=== PATIENT | female | born 1990 | race Caucasian/White ===

== ENCOUNTER 2018-01-04 19:38 | Inpatient (IN) | payer OTHER ==
[2018-01-04] VITALS (36 sets, daily range): BP systolic 103–140; BP diastolic 47–91; PULSE 63–90; RESP 16–18; TEMP 98–98.3
[~2018-01-04] VITALS: Ht 162.6 cm; Wt 68.0 kg
[2018-01-04] MEDS ORDERED: LACTATED RINGER'S 1000 ML INJ 1,000 ML IV SCH (20:24)
[2018-01-04] MEDS ORDERED: LACTATED RINGER'S 1000 ML INJ 1,000 ML IV PRN (20:24)
[2018-01-04] MEDS ORDERED: SODIUM CHLORID 0.9% 500 ML INJ 500 ML IV PRN (20:30)
[2018-01-04] MEDS ORDERED: ONDANSETRON HCL 4 MG/2 ML VIAL IV PUSH PRN (20:30)
[2018-01-04] MEDS ORDERED: LIDOCAINE HCL 1% 50 ML VIAL I-DERMAL PRN (20:30)
[2018-01-04] MEDS ORDERED: OXYTOCIN 30 UNITS-500ML PREMIX 500 ML IV PRN (20:30)
[2018-01-04] MEDS ORDERED: LIDOCAINE HCL 1% 50 ML VIAL INFIL PRN (20:30)
[2018-01-04] MEDS ORDERED: MINERAL OIL 10 ML VIAL TOPICAL PRN (20:30)
[2018-01-04] MEDS ORDERED: OXYTOCIN 30 UNITS-500ML PREMIX 500 ML IV ONE (20:30)
--- NOTE | 2018-01-04 20:34 | HHI.HP ---
History & Physical H&P Patient Name: Kitty Joseph Unit Number: [id number] Date of : 1990 Patient Status: Registered Emergency Room Attending Doctor: Tim Rice MD HPI HPI Chief Complaint Contractions, leakage of fluid Date Seen: Jan 04, 2018 Time Seen: 20:29 Travel History International Travel<30 Days: No Contact w/Intl Traveler<30Days: No Known Affected Area: No History of Present Illness HPI 27-year-old primigravida at 39+ weeks gestation who reports increasing contractions throughout the day with leakage of clear fluid this evening. She denies any bleeding. No pain other than with contractions. History (Limited) History Past Medical History Medical History: Denies Significant Hx Obstetric History Obstetric History Primigravida, uncomplicated care with Dr. Zavala Past Surgical History Surgical History: No Previous Surgery Family History Family History: Negative Social History Alcohol Use: No Tobacco Use: No Substance Abuse: No Allergies-Medications Allergies-Medications (Allergen,Severity, Reaction): Coded Allergies: bacitracin (Verified Allergy, Mild, 01/04/18) neomycin (Verified Allergy, Mild, 01/04/18) polymyxin B (Verified Allergy, Mild, 01/04/18) ROS Review of Systems Except as stated in HPI: all other systems reviewed are Neg Physical Exam Physical Exam Narrative GENERAL: Well-nourished, well-developed patient. SKIN: Warm and dry. HEAD: Normocephalic and atraumatic. EYES: No scleral icterus. No injection or drainage. ENT: No nasal drainage noted. Mucous membranes pink. Airway patent. NECK: Supple, trachea midline. No JVD. CARDIOVASCULAR: Regular rate and rhythm without murmurs, gallops, or rubs. RESPIRATORY: Breath sounds equal bilaterally. No accessory muscle use. ABDOMEN/GI: Abdomen soft, non-tender, bowel sounds present, no rebound, no guarding Gravid to [-] weeks size Fundal Height: [-] GENITOURINARY: External Genitalia: intact and normal in appearance BUS glands: [-] Cervix: [] Dilatation: [3-] Effacement: [-70] Station: [-2-] Presentation: [vtx-] Membranes: [ruptured] Uterine Contractions: [Every 2-3 mild-] FHT's: Category: [-1] Baseline: [-] Reactive: [-y] Variability: [-] Decels: [-] EXTREMITIES: No cyanosis or edema. BACK: Nontender without obvious deformity. No CVA tenderness. NEUROLOGICAL: Awake and alert. Motor and sensory grossly within normal limits. Five out of 5 muscle strength in all muscle groups. Normal speech. Data Data Data Vital Signs Reviewed: Yes Orders Orders Ob (2e) Additional Admit Info (01/04/18:25) Admit To Inpatient (01/04/18 ) Code Status (01/04/18 20:24) Vital Signs (Adult) .Per protocol (01/04/18 20:24) Heart (01/04/18:24) Amnioinfusion (01/04/18:24) Urinary Catheter Management .ONCE (01/04/18 20:24) Diet Npo (01/05/18 Breakfast) Lactated Ringer's 1000 Ml Inj (Lr 1000 M (01/04/18 20:24) Lactated Ringer's 1000 Ml Inj (Lr 1000 M (01/04/18 20:24) Sodium Chlorid 0.9% 500 Ml Inj (Ns 500 M (01/04/18 20:30) Sodium Chlor 0.9% 1000 Ml Inj (Ns 1000 M (01/04/18 20:44) Lidocaine 1% Inj (50 Ml) (Xylocaine 1% I (01/04/18 20:30) Ondansetron Inj (Zofran Inj) (01/04/18 20:30) Fentanyl Inj (Fentanyl Inj) (01/04/18 20:30) Fentanyl Inj (Fentanyl Inj) (01/04/18 20:30) Complete Blood Count With Diff (01/04/18 20:24) Hold Clot (01/04/18 20:24) Abo/Rh Blood Type (01/04/18 20:24) Drug Screen, Random Urine (01/04/18 20:24) Resp Oxygen Non Rebreathe Mask (01/04/18 ) ^ Epidural / Intrathecal Infus (01/04/18 20:24) Oxytocin 30 Units-500ml Premix (Pitocin (01/04/18 20:30) Lidocaine 1% Inj (50 Ml) (Xylocaine 1% I (01/04/18 20:30) Light Mineral Oil (Muri-Lube Oil) (01/04/18 20:30) Inpatient Certification (01/04/18 ) Group B Strep: Negative MDM MDM Medical Record Reviewed: Yes Narrative Course / MDM Assessment: Primigravida at 39+ weeks with ruptured membranes and early labor Plan: Admit for labor management Chente Bejarano MD Jan 04, 2018 20:33 Chente Bejarano MD Jan 04, 2018 20:34
[2018-01-04] MEDS ORDERED: SODIUM CHLOR 0.9% 1000 ML INJ 1,000 ML IV PRN (20:44)
[2018-01-04 21:59] LABS: AUTOMATED NEUTROPHIL # 10.1 TH/MM3 (1.8-7.7); BASOPHIL % 0.3 % (0.0-2.0); EOSINOPHIL # 0.1 TH/MM3 (0-0.4); EOSINOPHIL % 0.7 % (0.0-4.0); HEMATOCRIT 36.7 % (35.0-46.0); HEMOGLOBIN 12.8 GM/DL (11.6-15.3); LYMPH % 14.3 % (9.0-44.0); LYMPHOCYTE # 1.9 TH/MM3 (1.0-4.8); MEAN CELL VOLUME 90.8 FL (80.0-100.0); MEAN CORPUSCULAR HEMOGLOBIN 31.7 PG (27.0-34.0); MEAN CORPUSCULAR HGB CONC 34.9 % (32.0-36.0); MEAN PLATELET VOLUME 9.2 FL (7.0-11.0); MONOCYTE # 0.9 TH/MM3 (0-0.9); NEUT % 77.7 % (16.0-70.0); PLATELET COUNT 192 TH/MM3 (150-450); RED BLOOD COUNT 4.04 MIL/MM3 (4.00-5.30); RED CELL DISTRIBUTION WIDTH 13.2 % (11.6-17.2)
[2018-01-04] MEDS ORDERED: NO SYSTEM NARCOTICS PRN (22:00)
[2018-01-04] MEDS ORDERED: DO NOT ADMINISTER ANTICOAGULANTS PRN (22:00)
[2018-01-04] MEDS ORDERED: fentaNYL 2MCG-BUPIV 0.125% INJ 150 ML EPIDURAL ONE (22:44)
[2018-01-04] MEDS ORDERED: ePHEDrine/NS 25 MG/5 ML SYRINGE ONE (22:44)
[2018-01-04] MEDS ORDERED: fentaNYL 2MCG-BUPIV 0.125% 150 ML EPIDURAL PRN (23:45)
[2018-01-04] MEDS ORDERED: ePHEDrine/NS 25 MG/5 ML SYRINGE IV PUSH PRN (23:45)
[2018-01-05] VITALS (31 sets, daily range): BP systolic 99–145; BP diastolic 50–86; PULSE 63–92; RESP 16–18; TEMP 97.9–98.7
[2018-01-05] MEDS ORDERED: LIDOCAINE HCL 1% PF 30 ML VIAL ONE (01:43)
--- NOTE | 2018-01-05 02:06 | PD.OB.DELI ---
Gest age assessed date: Jan 04, 2018 Gest age assessed time: 21:00 Pt started active labor?: Yes Active labor start date: Jan 04, 2018 Active labor start time: 21:00 Artificial rupture of membrane: No Artificial ROM date: Jan 04, 2018 Anesthesia: Epidural Episiotomy: None Vaginal Delivery: Normal, Spontaneous Presentation: Occiput anterior Delayed cord clamping (45 sec): Yes Infant: Female, Single Delivery date: Jan 05, 2018 Delivery time: 01:50 One Minute : 8 Five Minute : 9 Placenta: Spontaneous delivery, Intact, 3 vessel cord Laceration: Vaginal laceration, 2 deg Repair: Chromic interrupted Tim Rice MD Jan 05, 2018 02:06
[2018-01-05] MEDS ORDERED: DOCUSATE SODIUM 50 MG/SENNA 8.6 MG TAB PO PRN (02:15)
[2018-01-05] MEDS ORDERED: ZOLPIDEM TARTRATE 5 MG TAB PO PRN (02:15)
[2018-01-05] MEDS ORDERED: OXYTOCIN 30 UNITS-500ML PREMIX 500 ML IV SCH (02:15)
[2018-01-05] MEDS ORDERED: oxyCODONE/ACETAMINOPHEN 5 MG/325 MG TAB PO PRN ×2 (02:15)
[2018-01-05] MEDS ORDERED: ONDANSETRON ODT 4 MG TAB PO PRN (02:15)
[2018-01-05] MEDS ORDERED: ACETAMINOPHEN 325 MG TAB PO PRN (02:15)
[2018-01-05] MEDS ORDERED: SODIUM CHLORIDE 0.9% FLUSH 10 ML FLUSH IV FLUSH PRN (02:15)
[2018-01-05] MEDS ORDERED: ALUMINUM/MAGNESIUM/SIMETH 30 ML CUP PO PRN (02:15)
[2018-01-05] MEDS: WITCH HAZEL 50%/GLYCERIN 12.5% 40 PAD JAR TOPICAL PRN (05:15)
[2018-01-05] MEDS: BENZOCAINE 20% TOPICAL SPRAY 60 ML CAN TOPICAL PRN (05:15)
[2018-01-05] MEDS ORDERED: SODIUM CHLORIDE 0.9% FLUSH 10 ML FLUSH IV FLUSH SCH (09:00)
[2018-01-05] MEDS ORDERED: DIPHTH/TETANUS/ACEL PERTUSSIS (BOOSTER) 0.5 ML VIAL/PFS IM ONE (16:00)
[2018-01-05] MEDS ORDERED: MEASLES, MUMPS, RUBELLA VACCINE 0.5 ML VIAL SQ ONE (16:00)
[2018-01-05] MEDS: IBUPROFEN 800 MG TAB PO PRN (21:16)
[2018-01-06] MEDS: WITCH HAZEL 50%/GLYCERIN 12.5% 40 PAD JAR TOPICAL PRN (06:15)
[2018-01-06] MEDS: BENZOCAINE 20% TOPICAL SPRAY 60 ML CAN TOPICAL PRN (06:16)
[2018-01-06] MEDS: IBUPROFEN 800 MG TAB PO PRN (06:16)
--- NOTE | 2018-01-06 09:28 | HHI.DCPOC ---
Discharge Care Plan Your Health Problems Are: Vaginal delivery Report Symptoms to Your Doctor -Temperature above 100.5 degrees -Redness, of incision or excessive or foul smelling drainage -Unusual pain or calf pain -Increased vaginal bleeding -Painful or difficulty urinating -Feelings of extreme sadness or anxiety after 2 weeks Goals to Promote Your Health * To prevent worsening of your condition and complications * To maintain your health at the optimal level Directions to Meet Your Goals Take your medications as prescribed Follow your dietary instruction Follow activity as directed Ensure plenty of rest for recovery Drink fluids for hydration Keep your appointments as scheduled Take your immunizations and boosters as scheduled If your symptoms worsen call your PCP, if no PCP go to Urgent Care Center or Emergency Room Smoking is Dangerous to Your Health. Avoid second hand smoke Call the 24-hour crisis hotline for domestic abuse at Radha Green MD Jan 06, 2018 09:28
--- NOTE | 2018-01-06 09:29 | HHI.DS ---
Admission Date Jan 04, 2018 at 20:27 Admitting Diagnosis Diagnosis: Delivery Date: Jan 05, 2018 Vaginal Delivery: Normal Infant: Female, Single Brief History 27-year-old primigravida at 39+ weeks gestation who reports increasing contractions throughout the day with leakage of clear fluid this evening. She denies any bleeding. No pain other than with contractions. Pt Condition on Discharge: Good Discharge Disposition: Discharge Home Discharge Instructions Diet Instructions: As Tolerated, No Restrictions Activities You Can Perform: Pelvic Rest Radha Green MD Jan 06, 2018 09:29
== END 2018-01-06 14:20 | disposition home or self-care (01) | DRG 775 ==
LOC: HOBED 19:38 → H2EB 20:27 → H1EA 01-05 04:18
PROVIDERS: ADMIT Obstetrics & Gynecology; ATTEND Obstetrics & Gynecology
PROC: 10E0XZZ Delivery of Products of Conception, External Approach (ICD-10-PCS; principal; 2018-01-05)
PROC: 0KQM0ZZ Repair Perineum Muscle, Open Approach (ICD-10-PCS; 2018-01-05)
DX: O70.1 Second degree perineal laceration during delivery (principal); Z37.0 Single live birth; Z3A.39 39 weeks gestation of pregnancy
CPT/HCPCS: 59025; 80307; 84112; 85025; 86900; 86901; 90715